=== PATIENT | female | born 1960 | race Hispanic/Latino ===

== ENCOUNTER 2017-04-08 08:20 | Day surgery (SDC) | payer OTHER ==
[2017-04-08] MEDS ORDERED: Lactated Ringer's 500 ML IV ONE (09:24)
[2017-04-08] MEDS ORDERED: Propofol 10 mg/ml Inj (20 ML) ONE (09:44)
[2017-04-08 10:24] VITALS: O2SAT 96
[2017-04-08 10:33] VITALS: BP 121/76; PULSE 71; RESP 14; TEMP 97.6
== END 2017-04-08 12:00 | disposition home or self-care (01) ==
LOC: H.ENDO 08:20
PROVIDERS: ATTEND Internal Medicine Gastroenterology
DX: R10.13 Epigastric pain (principal); K44.9 Diaphragmatic hernia without obstruction or gangrene; K31.9 Disease of stomach and duodenum, unspecified; Z12.11 Encounter for screening for malignant neoplasm of colon; K64.9 Unspecified hemorrhoids

== ENCOUNTER 2018-10-26 15:58 | Inpatient (IN) | payer OTHER ==
[2018-10-26 17:42] VITALS: BMI 50.1
[2018-10-26] MEDS ORDERED: Alum-Mag Hydrox-Simethicone Susp (30 mL) PO PRN (18:54)
[2018-10-26] MEDS ORDERED: Albuterol 0.083% Inhal Sol (2.5 mg/3 mL) UD IH PRN (18:54)
[2018-10-26] MEDS ORDERED: oxyCODONE 5 mg Immediate Release Tab PO PRN (18:54)
[2018-10-26] MEDS ORDERED: Magnesium Hydroxide Susp 30 ml UD PO PRN (18:54)
[2018-10-26] MEDS ORDERED: oxyCODONE 10 mg Immediate Release Tab PO PRN (18:54)
--- NOTE | 2018-10-26 19:08 | CP.PCM.HP ---
History of Present Illness - History of Present Illness History of Present Illness: 58 yo female with history of HTN, Asthma, Obesity and Osteoarthritis transferred and admitted to Acute Rehab for PT/OT after bilateral TKR at [facility] on 10/23/2018. Present on Admission - Present on Admission Any Indicators Present on Admission: Yes History of DVT/PE: Yes History of Uncontrolled Diabetes: Yes Urinary Catheter: Yes Decubitus Ulcer Present: Yes Review of Systems - Review of Systems All systems: reviewed and no additional remarkable complaints except (aside from those mentioned above, 12 point system review were negative by me) Past Patient History - Tetanus Immunizations Tetanus Immunization: Unknown - Past Medical History & Family History Past Medical History?: Yes - Past Social History Smoking Status: Former Smoker Chewing Tobacco Use: No Cigar Use: No Alcohol: Occasional Drugs: Denies Home Situation {Lives}: With Family - CARDIAC Hx Hypertension: Yes - MUSCULOSKELETAL/RHEUMATOLOGICAL Hx Arthritis: Yes (both knees) - SURGICAL HISTORY Hx Surgeries: Yes Hx Section: Yes Hx Herniorrhaphy: Yes Hx Orthopedic Surgery: Yes Hx Tonsillectomy: Yes Hx Tubal Ligation: Yes - ANESTHESIA Hx Anesthesia: Yes Hx Anesthesia Reactions: No Hx Malignant Hyperthermia: No Meds Allergies/Adverse Reactions: Allergies Allergy/AdvReac Type Severity Reaction Status Date / Time No Known Allergies Allergy Verified 10/26/18 18:28 Physical Exam - Constitutional Appears: No Acute Distress - Head Exam Head Exam: ATRAUMATIC - Eye Exam Eye Exam: absent: Scleral icterus - ENT Exam ENT Exam: Mucous Membranes Moist - Neck Exam Neck exam: Negative for: Meningismus - Respiratory Exam Respiratory Exam: absent: Rales, Rhonchi, Wheezes, Respiratory Distress - Cardiovascular Exam Cardiovascular Exam: REGULAR RHYTHM, +S1, +S2 - GI/Abdominal Exam GI & Abdominal Exam: Soft. absent: Tenderness - Rectal Exam Rectal Exam: Deferred - Extremities Exam Extremities exam: Negative for: full ROM (limited ROM on both knees) - Neurological Exam Neurological exam: Alert, Oriented x3 - Psychiatric Exam Psychiatric exam: Normal Affect - Skin Skin Exam: Dry, Intact Assessment & Plan - Assessment and Plan (Free Text) Assessment: 58 yo female with history of HTN, Asthma, Obesity and Osteoarthritis transferred and admitted to Acute Rehab for PT/OT after bilateral TKR at [facility] on 10/23/2018. 1. Post Bilateral TKR physiatry consult with Dr Davies continue pain management refer to PT/OT 2. Asthma Albuterol inhaler 1 puff q 4hrs prn 3. HTN BP controlled continue Benicar 4. DVT prophylaxis Lovenox 40mg SC daily
[2018-10-26] MEDS: oxyCODONE 5 mg Immediate Release Tab PO PRN (19:57)
[2018-10-27] MEDS ORDERED: Albuterol 0.083% Inhal Sol (2.5 mg/3 mL) UD IH SCH
[2018-10-27] MEDS: oxyCODONE 5 mg Immediate Release Tab PO PRN ×5 (00:05→20:10)
[2018-10-27] MEDS: Albuterol 0.083% Inhal Sol (2.5 mg/3 mL) UD IH SCH ×5 (04:56→20:07)
[2018-10-27 07:01] LABS: BASO % 0.2 % (0.0-2.0); EOS # 0.1 K/uL (0.0-0.7); EOS % 1.3 % (0.0-4.0); HEMOGLOBIN 10.1 g/dL (12.0-16.0); LYMPH # 3.4 K/uL (1.0-4.3); LYMPH % 30.7 % (20.0-40.0); MEAN CELL VOLUME 96.2 fl (81.0-99.0); MEAN CORPUSCULAR HEMOGLOBIN 32.4 pg (27.0-31.0); MEAN CORPUSCULAR HGB CONC 33.6 g/dL (33.0-37.0); MEAN PLATELET VOLUME 10.1 fl (7.2-11.7); MONO # 0.8 K/uL (0.0-0.8); NEUT # 6.7 K/uL (1.8-7.0); NEUT % 60.8 % (50.0-75.0); NRBC % 0.1 % (0.0-0.0); RBC 3.11 Mil/uL (3.80-5.20); RED CELL DISTRIBUTION WIDTH 13.2 % (11.5-14.5); WHITE BLOOD COUNT 11.1 K/uL (4.8-10.8)
[2018-10-27 07:07] LABS: ALB/GLOB RATIO 1.2 (1.0-2.1); ALBUMIN 3.1 g/dL (3.5-5.0); ALT/SGPT 60 U/L (9-52); AST/SGOT 52 U/L (14-36); BLOOD UREA NITROGEN 14 mg/dl (7-17); CALCIUM 8.9 mg/dL (8.4-10.2); GFR NON-AFRICAN AMERICAN > 60
[2018-10-27] MEDS: Pantoprazole 40 mg EC Tab PO SCH (09:25)
[2018-10-27] MEDS: Multivitamin With Minerals Tab PO SCH (09:25)
[2018-10-27] MEDS: OLMESARTAN PO SCH (11:00)
[2018-10-27] MEDS: HYDROCHLOROTHIAZIDE PO SCH (11:00)
[2018-10-27] MEDS: [UNRECOGNIZED DRUG - OTHER] PO SCH (11:00)
[2018-10-27] MEDS: SOLIFENACIN SUCCINATE PO SCH (11:15)
[2018-10-27] MEDS: Enoxaparin 40 mg Syringe SC SCH (12:26)
--- NOTE | 2018-10-27 14:38 | PCM.OPOC ---
Physiatry Overall Plan of Care - Overall Plan of Care Estimated Length of Stay in Weeks: 2 Rehab Impairment: Mobility, Gait, Balance, Coordination Etiologic Diagnosis: Hip/Knee Surgery - Anticipated Interventions Physical Therapy:: Yes Occupational Therapy:: Yes Recreational Therapy:: Yes - Therapy Goals Bed Mobility: Independent Ambulation: Independent Functional Positional Changes:: Independent - Functional Outcomes Functional Outcomes: fair - Discharge Plan Identification of Barriers to Discharge: Home Situation Discharge Destination: Home
--- NOTE | 2018-10-27 14:41 | CP.PCM.CON ---
History of Present Illness - History of Present Illness History of Present Illness: 58 year old female with bilateral knee replacement, admitted form [facility] name, with PMH of asthma, htn obesity Review of Systems - Musculoskeletal Musculoskeletal: Limited Range of Motion, Muscle Weakness Past Patient History - Tetanus Immunizations Tetanus Immunization: Unknown - Past Medical History & Family History Past Medical History?: Yes - Past Social History Smoking Status: Former Smoker - CARDIAC Hx Cardiac Disorders: Yes Hx Hypertension: Yes - PULMONARY Hx Respiratory Disorders: Yes Hx Asthma: Yes - NEUROLOGICAL Hx Neurological Disorder: No - HEENT Hx HEENT Problems: Yes Other/Comment: uses eyeglasses for distance and reading - RENAL Hx Chronic Kidney Disease: No - ENDOCRINE/METABOLIC Hx Endocrine Disorders: Yes Other/Comment: Obesity - HEMATOLOGICAL/ONCOLOGICAL Hx Blood Disorders: No Hx AIDS: No Hx Human Immunodeficiency Virus (HIV): No - INTEGUMENTARY Hx Dermatological Problems: Yes Hx Melanoma: Yes (skin melanoma) - MUSCULOSKELETAL/RHEUMATOLOGICAL Hx Falls: No - GASTROINTESTINAL Hx Gastrointestinal Disorders: No - GENITOURINARY/GYNECOLOGICAL Hx Genitourinary Disorders: No - PSYCHIATRIC Hx Substance Use: No - SURGICAL HISTORY Hx Surgeries: Yes Hx Section: Yes Hx Cholecystectomy: Yes Hx Dilation and Curettage: Yes (x2) Hx Herniorrhaphy: Yes Hx Orthopedic Surgery: Yes (both hips surgery at 6 years old) Hx Tonsillectomy: Yes Hx Tubal Ligation: Yes Other/Comment: endometrial ablation - ANESTHESIA Hx Anesthesia: Yes Hx Anesthesia Reactions: No Hx Malignant Hyperthermia: No Meds Allergies/Adverse Reactions: Allergies Allergy/AdvReac Type Severity Reaction Status Date / Time No Known Allergies Allergy Verified 10/26/18 18:28 - Medications Medications: Current Medications Acetaminophen (Tylenol 325mg Tab) 650 mg PO Q4 PRN PRN Reason: Pain, Mild (1-3) Acetaminophen (Tylenol 325mg Tab) 650 mg PO Q4 PRN PRN Reason: Fever >100.4 F Al Hydrox/Mg Hydrox/Simethicone (Maalox Plus 30 Ml) 30 ml PO Q4 PRN PRN Reason: Heartburn Albuterol Sulfate (Albuterol 0.083% Inhal Lisa (2.5 Mg/3 Ml) Ud) 2.5 mg IH RQ4 [facility] Last Admin: 10/27/18 12:31 Dose: Not Given Bisacodyl (Dulcolax) 10 mg RC DAILY PRN PRN Reason: Constipation Celecoxib (Celebrex) 200 mg PO 1000,2200 [facility] Last Admin: 10/27/18 10:00 Dose: 200 mg Docusate Sodium (Colace) 100 mg PO TID [facility] Last Admin: 10/27/18 12:28 Dose: 100 mg Enoxaparin Sodium (Lovenox) 40 mg SC DAILY [facility]; Protocol Last Admin: 10/27/18 12:26 Dose: 40 mg Home Med (Olmesartan/Hydrochlorothiazide [Benicar Hct 20-12.5 Mg Tablet]) 20 mg PO DAILY [facility] Last Admin: 10/27/18 11:00 Dose: 20 mg Home Med (Solifenacin Succinate [Vesicare]) 1 tab PO DAILY [facility] Last Admin: 10/27/18 11:15 Dose: 1 tab Magnesium Hydroxide (Milk Of Magnesia) 30 ml PO HS PRN PRN Reason: Constipation Multivitamins/Minerals (Therapeutic-M Tab) 1 tab PO DAILY [facility] Last Admin: 10/27/18 09:25 Dose: 1 tab Ondansetron HCl (Zofran Inj) 4 mg IVP Q6H PRN PRN Reason: Nausea/Vomiting Oxycodone HCl (Oxycodone Immediate Release Tab) 5 mg PO Q4 PRN PRN Reason: Pain, moderate (4-7) Oxycodone HCl (Oxycodone Immediate Release Tab) 10 mg PO Q4 PRN PRN Reason: Pain, severe (8-10) Last Admin: 10/27/18 13:38 Dose: 10 mg Pantoprazole Sodium (Protonix Ec Tab) 40 mg PO DAILY [facility] Last Admin: 10/27/18 09:25 Dose: 40 mg Pregabalin (Lyrica) 50 mg PO 1000,2200 [facility] Last Admin: 10/27/18 12:25 Dose: 50 mg Sennosides (Senokot Tab) 17.2 mg PO HS [facility] Last Admin: 10/26/18 22:59 Dose: 17.2 mg Zolpidem Tartrate (Ambien) 2.5 mg PO HS PRN PRN Reason: Insomnia Physical Exam - Constitutional Appears: Well - Head Exam Head Exam: ATRAUMATIC, NORMAL INSPECTION, NORMOCEPHALIC - Eye Exam Eye Exam: EOMI, Normal appearance, PERRL Pupil Exam: NORMAL ACCOMODATION - ENT Exam ENT Exam: Mucous Membranes Moist, Normal Exam - Neck Exam Neck exam: Positive for: Normal Inspection - Respiratory Exam Respiratory Exam: Clear to Auscultation Bilateral, NORMAL BREATHING PATTERN - Cardiovascular Exam Cardiovascular Exam: REGULAR RHYTHM - GI/Abdominal Exam GI & Abdominal Exam: Normal Bowel Sounds - Rectal Exam Rectal Exam: NORMAL INSPECTION - Exam External exam: NORMAL EXTERNAL EXAM - Extremities Exam Extremities exam: Positive for: normal inspection - Back Exam Back exam: NORMAL INSPECTION Additional comments: bilateral knee surgery, incisional area healing with TEds - Neurological Exam Neurological exam: Alert, CN II-XII Intact - Psychiatric Exam Psychiatric exam: Normal Affect - Skin Skin Exam: Dry Results - Vital Signs Recent Vital Signs: Last Vital Signs Temp 98.2 F 10/27/18 08:22 Pulse 86 10/27/18 08:22 Resp 18 10/27/18 08:22 BP 91/50 L 10/27/18 08:22 Pulse Ox 95 10/27/18 08:22 - Labs Result Diagrams: 10/27/18 05:35 10/27/18 05:35 Labs: Laboratory Results - last 24 hr 10/27/18 10/27/18 05:35 05:35 WBC 11.1 H RBC 3.11 L Hgb 10.1 L D Hct 29.9 L MCV 96.2 MCH 32.4 H MCHC 33.6 RDW 13.2 Plt Count 249 MPV 10.1 Neut % (Auto) 60.8 Lymph % (Auto) 30.7 [place] % (Auto) 7.0 Eos % (Auto) 1.3 Baso % (Auto) 0.2 Neut # (Auto) 6.7 Lymph # (Auto) 3.4 [place] # (Auto) 0.8 Eos # (Auto) 0.1 Baso # (Auto) 0.0 Sodium 137 Potassium 3.6 Chloride 102 Carbon Dioxide 30 Anion Gap 9 L BUN 14 Creatinine 0.6 L Est GFR ( Amer) > 60 Est GFR (Non-Af Amer) > 60 Random Glucose 106 H Calcium 8.9 Total Bilirubin 0.8 AST 52 H D ALT 60 H D Alkaline Phosphatase 104 Total Protein 5.7 L Albumin 3.1 L D Globulin 2.6 Albumin/Globulin Ratio 1.2 Assessment & Plan (1) Status post bilateral knee replacements Assessment and Plan: also history of HT, obesity, OA plan for physical, occupational therapy Quadriceps strengthening ,pain treatment ,follow up with the orthopedic ord ers. plan of care written Status: Acute
[2018-10-28] MEDS ORDERED: oxyCODONE 10 mg Immediate Release Tab PO ONE
[2018-10-28] MEDS: Albuterol 0.083% Inhal Sol (2.5 mg/3 mL) UD IH SCH ×6 (00:19→19:15)
[2018-10-28] MEDS: oxyCODONE 5 mg Immediate Release Tab PO PRN ×5 (02:11→21:10)
[2018-10-28] MEDS: Multivitamin With Minerals Tab PO SCH (08:38)
[2018-10-28] MEDS: Pantoprazole 40 mg EC Tab PO SCH (08:38)
[2018-10-28] MEDS: Enoxaparin 40 mg Syringe SC SCH (08:39)
[2018-10-28] MEDS: SOLIFENACIN SUCCINATE PO SCH (08:40)
[2018-10-28] MEDS: HYDROCHLOROTHIAZIDE PO SCH (11:00)
[2018-10-28] MEDS: OLMESARTAN PO SCH (11:00)
[2018-10-28] MEDS: [UNRECOGNIZED DRUG - OTHER] PO SCH (11:00)
[2018-10-29] MEDS ORDERED: oxyCODONE 5 mg Immediate Release Tab PO ONE (00:30)
[2018-10-29] MEDS: Albuterol 0.083% Inhal Sol (2.5 mg/3 mL) UD IH SCH ×6 (00:42→19:02)
[2018-10-29] MEDS: oxyCODONE 5 mg Immediate Release Tab PO PRN ×5 (06:18→23:00)
[2018-10-29] MEDS: Pantoprazole 40 mg EC Tab PO SCH (08:49)
[2018-10-29] MEDS: Multivitamin With Minerals Tab PO SCH (08:49)
[2018-10-29] MEDS: SOLIFENACIN SUCCINATE PO SCH (08:50)
[2018-10-29] MEDS: Enoxaparin 40 mg Syringe SC SCH (08:53)
[2018-10-29] MEDS: HYDROCHLOROTHIAZIDE PO SCH (08:53)
[2018-10-29] MEDS: OLMESARTAN PO SCH (08:53)
[2018-10-29] MEDS: [UNRECOGNIZED DRUG - OTHER] PO SCH (08:53)
--- NOTE | 2018-10-29 10:54 | CP.PCM.PN ---
Subjective - Date & Time of Evaluation Date of Evaluation: 10/28/18 Time of Evaluation: 09:15 - Subjective Subjective: patient with bilateral leg weakness Objective - Vital Signs/Intake and Output Vital Signs (last 24 hours): Temp Pulse Resp BP Pulse Ox 97.9 F 86 20 112/59 L 96 10/29/18 08:12 10/29/18 08:12 10/29/18 08:12 10/29/18 08:12 10/29/18 08:12 - Medications Medications: Current Medications Acetaminophen (Tylenol 325mg Tab) 650 mg PO Q4 PRN PRN Reason: Pain, Mild (1-3) Acetaminophen (Tylenol 325mg Tab) 650 mg PO Q4 PRN PRN Reason: Fever >100.4 F Al Hydrox/Mg Hydrox/Simethicone (Maalox Plus 30 Ml) 30 ml PO Q4 PRN PRN Reason: Heartburn Albuterol Sulfate (Albuterol 0.083% Inhal Lisa (2.5 Mg/3 Ml) Ud) 2.5 mg IH RQ4 [facility] Last Admin: 10/29/18 07:37 Dose: 2.5 mg Bisacodyl (Dulcolax) 10 mg RC DAILY PRN PRN Reason: Constipation Celecoxib (Celebrex) 200 mg PO 1000,2200 [facility] Last Admin: 10/29/18 09:00 Dose: 200 mg Docusate Sodium (Colace) 100 mg PO TID [facility] Last Admin: 10/29/18 08:48 Dose: 100 mg Enoxaparin Sodium (Lovenox) 40 mg SC DAILY [facility]; Protocol Last Admin: 10/29/18 08:53 Dose: 40 mg Home Med (Olmesartan/Hydrochlorothiazide [Benicar Hct 20-12.5 Mg Tablet]) 20 mg PO DAILY [facility] Last Admin: 10/29/18 08:53 Dose: 20 mg Home Med (Solifenacin Succinate [Vesicare]) 1 tab PO DAILY [facility] Last Admin: 10/29/18 08:50 Dose: 1 tab Magnesium Hydroxide (Milk Of Magnesia) 30 ml PO HS PRN PRN Reason: Constipation Multivitamins/Minerals (Therapeutic-M Tab) 1 tab PO DAILY [facility] Last Admin: 10/29/18 08:49 Dose: 1 tab Ondansetron HCl (Zofran Inj) 4 mg IVP Q6H PRN PRN Reason: Nausea/Vomiting Oxycodone HCl (Oxycodone Immediate Release Tab) 5 mg PO Q4 PRN PRN Reason: Pain, moderate (4-7) Oxycodone HCl (Oxycodone Immediate Release Tab) 10 mg PO Q4 PRN PRN Reason: Pain, severe (8-10) Last Admin: 10/29/18 10:20 Dose: 10 mg Pantoprazole Sodium (Protonix Ec Tab) 40 mg PO DAILY [facility] Last Admin: 10/29/18 08:49 Dose: 40 mg Pregabalin (Lyrica) 50 mg PO 1000,2200 [facility] Last Admin: 10/29/18 09:00 Dose: 50 mg Sennosides (Senokot Tab) 17.2 mg PO HS [facility] Last Admin: 10/28/18 21:12 Dose: 17.2 mg Zolpidem Tartrate (Ambien) 2.5 mg PO HS PRN PRN Reason: Insomnia - Labs Labs: 10/27/18 05:35 10/27/18 05:35 - Constitutional Appears: Well - Head Exam Head Exam: ATRAUMATIC, NORMAL INSPECTION, NORMOCEPHALIC - Eye Exam Eye Exam: EOMI, Normal appearance Pupil Exam: NORMAL ACCOMODATION, PERRL - ENT Exam ENT Exam: Mucous Membranes Moist - Neck Exam Neck Exam: Normal Inspection - Respiratory Exam Respiratory Exam: NORMAL BREATHING PATTERN - Cardiovascular Exam Cardiovascular Exam: REGULAR RHYTHM - GI/Abdominal Exam GI & Abdominal Exam: Normal Bowel Sounds - Exam External exam: NORMAL EXTERNAL EXAM - Extremities Exam Extremities Exam: Normal Capillary Refill - Back Exam Back Exam: NORMAL INSPECTION - Neurological Exam Neurological Exam: Alert, Awake Neuro motor strength exam: Left Lower Extremity: 3, Right Lower Extremity: 3 - Psychiatric Exam Psychiatric exam: Normal Affect Assessment and Plan (1) Status post bilateral knee replacements Assessment & Plan: plan for physical, occupational and rec therapy follow regarding the specific orthopedic protocol, continue acute rehab Status: Acute
[2018-10-30] MEDS: Albuterol 0.083% Inhal Sol (2.5 mg/3 mL) UD IH SCH ×7 (00:20→23:55)
[2018-10-30] MEDS ORDERED: oxyCODONE 5 mg Immediate Release Tab PO STA (00:22)
[2018-10-30] MEDS: oxyCODONE 5 mg Immediate Release Tab PO PRN ×5 (06:13→22:46)
[2018-10-30 06:51] LABS: HEMOGLOBIN 10.4 g/dL (12.0-16.0); MEAN CELL VOLUME 96.5 fl (81.0-99.0); MEAN CORPUSCULAR HEMOGLOBIN 32.4 pg (27.0-31.0); MEAN CORPUSCULAR HGB CONC 33.6 g/dL (33.0-37.0); RBC 3.21 Mil/uL (3.80-5.20); RED CELL DISTRIBUTION WIDTH 13.6 % (11.5-14.5); WHITE BLOOD COUNT 14.6 K/uL (4.8-10.8)
[2018-10-30 07:04] LABS: BLOOD UREA NITROGEN 15 mg/dl (7-17); GFR NON-AFRICAN AMERICAN > 60
[2018-10-30] MEDS: Enoxaparin 40 mg Syringe SC SCH (08:29)
[2018-10-30] MEDS: Pantoprazole 40 mg EC Tab PO SCH (08:31)
[2018-10-30] MEDS: SOLIFENACIN SUCCINATE PO SCH (08:32)
[2018-10-30] MEDS: Multivitamin With Minerals Tab PO SCH (08:33)
[2018-10-30] MEDS: [UNRECOGNIZED DRUG - OTHER] PO SCH (08:33)
[2018-10-30] MEDS: OLMESARTAN PO SCH (08:33)
[2018-10-30] MEDS: HYDROCHLOROTHIAZIDE PO SCH (08:33)
[2018-10-30] MEDS ORDERED: Lactulose 10 gm/15 ml (Rectal Use) PR ONE (09:48)
--- NOTE | 2018-10-30 10:05 | CP.PCM.CON ---
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 She has no history of diabetes or coronary artery disease or congestive cardiac failure. She has taken her antihypertensives regularly and tolerated the surgical intervention without any difficulty. Physical examination shows a middle aged overweight pleasant female who is quite alert awake coherent and afebrile. Slightly propped up in bed she can carry on a conversation and has a heart rat of 68 bpm regular and a blood pressure of 92/70 mmHg. Her jugular venous pressure was not elevated there was minimal pitting edema over both lower extremities. Pedal pulses were feeble but distinct of present. Her chest was clear and heart sounds were pure. her abdomen was soft liver and spleen are not palpable. Surgical wounds were clean. There was no calf tenderness. Impression: status post bilateral knee replacement for severe osteoarthritis bilaterally. Chronic exogenous obesity and hypertension. At this point the patient is normotensive and I have withheld her antihypertensives medications. She has been taking narcotics for pain relief and complains of severe constipation. I have given her lactulose for the same. I will follow the patient with you thank you. Past Patient History - Tetanus Immunizations Tetanus Immunization: Unknown - Past Medical History & Family History Past Medical History?: Yes - Past Social History Smoking Status: Former Smoker - CARDIAC Hx Cardiac Disorders: Yes Hx Hypertension: Yes - PULMONARY Hx Respiratory Disorders: Yes Hx Asthma: Yes - NEUROLOGICAL Hx Neurological Disorder: No - HEENT Hx HEENT Problems: Yes Other/Comment: uses eyeglasses for distance and reading - RENAL Hx Chronic Kidney Disease: No - ENDOCRINE/METABOLIC Hx Endocrine Disorders: Yes Other/Comment: Obesity - HEMATOLOGICAL/ONCOLOGICAL Hx Blood Disorders: No Hx AIDS: No Hx Human Immunodeficiency Virus (HIV): No - INTEGUMENTARY Hx Dermatological Problems: Yes Hx Melanoma: Yes (skin melanoma) - MUSCULOSKELETAL/RHEUMATOLOGICAL Hx Falls: No - GASTROINTESTINAL Hx Gastrointestinal Disorders: No - GENITOURINARY/GYNECOLOGICAL Hx Genitourinary Disorders: No - PSYCHIATRIC Hx Substance Use: No - SURGICAL HISTORY Hx Surgeries: Yes Hx Section: Yes Hx Cholecystectomy: Yes Hx Dilation and Curettage: Yes (x2) Hx Herniorrhaphy: Yes Hx Orthopedic Surgery: Yes (both hips surgery at 6 years old) Hx Tonsillectomy: Yes Hx Tubal Ligation: Yes Other/Comment: endometrial ablation - ANESTHESIA Hx Anesthesia: Yes Hx Anesthesia Reactions: No Hx Malignant Hyperthermia: No Meds Allergies/Adverse Reactions: Allergies Allergy/AdvReac Type Severity Reaction Status Date / Time No Known Allergies Allergy Verified 10/26/18 18:28 - Medications Medications: Current Medications Acetaminophen (Tylenol 325mg Tab) 650 mg PO Q4 PRN PRN Reason: Pain, Mild (1-3) Acetaminophen (Tylenol 325mg Tab) 650 mg PO Q4 PRN PRN Reason: Fever >100.4 F Al Hydrox/Mg Hydrox/Simethicone (Maalox Plus 30 Ml) 30 ml PO Q4 PRN PRN Reason: Heartburn Albuterol Sulfate (Albuterol 0.083% Inhal Lisa (2.5 Mg/3 Ml) Ud) 2.5 mg IH RQ4 [facility] Last Admin: 10/30/18 07:27 Dose: Not Given Bisacodyl (Dulcolax) 10 mg RC DAILY PRN PRN Reason: Constipation Celecoxib (Celebrex) 200 mg PO 1000,2200 [facility] Last Admin: 10/30/18 09:12 Dose: 200 mg Docusate Sodium (Colace) 100 mg PO TID [facility] Last Admin: 10/30/18 08:28 Dose: 100 mg Enoxaparin Sodium (Lovenox) 40 mg SC DAILY [facility]; Protocol Last Admin: 10/30/18 08:29 Dose: 40 mg Home Med (Olmesartan/Hydrochlorothiazide [Benicar Hct 20-12.5 Mg Tablet]) 20 mg PO DAILY [facility] Last Admin: 10/30/18 08:33 Dose: Not Given Home Med (Solifenacin Succinate [Vesicare]) 1 tab PO DAILY [facility] Last Admin: 10/30/18 08:32 Dose: 1 tab Magnesium Hydroxide (Milk Of Magnesia) 30 ml PO HS PRN PRN Reason: Constipation Multivitamins/Minerals (Therapeutic-M Tab) 1 tab PO DAILY [facility] Last Admin: 10/30/18 08:33 Dose: 1 tab Ondansetron HCl (Zofran Inj) 4 mg IVP Q6H PRN PRN Reason: Nausea/Vomiting Oxycodone HCl (Oxycodone Immediate Release Tab) 5 mg PO Q4 PRN PRN Reason: Pain, moderate (4-7) Oxycodone HCl (Oxycodone Immediate Release Tab) 10 mg PO Q4 PRN PRN Reason: Pain, severe (8-10) Last Admin: 10/30/18 06:13 Dose: 10 mg Pantoprazole Sodium (Protonix Ec Tab) 40 mg PO DAILY [facility] Last Admin: 10/30/18 08:31 Dose: 40 mg Pregabalin (Lyrica) 50 mg PO 1000,2200 [facility] Last Admin: 10/30/18 09:15 Dose: 50 mg Sennosides (Senokot Tab) 17.2 mg PO HS [facility] Last Admin: 10/29/18 21:36 Dose: 17.2 mg Zolpidem Tartrate (Ambien) 2.5 mg PO HS PRN PRN Reason: Insomnia Results - Vital Signs Recent Vital Signs: Last Vital Signs Temp 98.8 F 10/30/18 08:26 Pulse 77 10/30/18 08:26 Resp 18 10/30/18 08:26 BP 97/47 L 10/30/18 08:26 Pulse Ox 97 10/30/18 08:26 - Labs Result Diagrams: 10/30/18 05:25 10/30/18 05:25 Labs: Laboratory Results - last 24 hr 10/30/18 10/30/18 05:25 05:25 WBC 14.6 H RBC 3.21 L Hgb 10.4 L Hct 31.0 L MCV 96.5 MCH 32.4 H MCHC 33.6 RDW 13.6 Plt Count 306 Sodium 135 Potassium 4.0 Chloride 96 L Carbon Dioxide 32 H Anion Gap 11 BUN 15 Creatinine 0.6 L Est GFR ( Amer) > 60 Est GFR (Non-Af Amer) > 60 Random Glucose 118 H Calcium 9.0
--- NOTE | 2018-10-30 13:27 | CP.PCM.PN ---
Subjective - Date & Time of Evaluation Date of Evaluation: 10/30/18 Time of Evaluation: 11:00 - Subjective Subjective: Patient seen and examined. Still complaining of pain on both knees specially during ambulation and therapy. Objective - Vital Signs/Intake and Output Vital Signs (last 24 hours): Temp Pulse Resp BP Pulse Ox 98.8 F 77 18 90/47 L 97 10/30/18 08:26 10/30/18 08:26 10/30/18 08:26 10/30/18 11:56 10/30/18 08:26 - Medications Medications: Current Medications Acetaminophen (Tylenol 325mg Tab) 650 mg PO Q4 PRN PRN Reason: Pain, Mild (1-3) Acetaminophen (Tylenol 325mg Tab) 650 mg PO Q4 PRN PRN Reason: Fever >100.4 F Al Hydrox/Mg Hydrox/Simethicone (Maalox Plus 30 Ml) 30 ml PO Q4 PRN PRN Reason: Heartburn Albuterol Sulfate (Albuterol 0.083% Inhal Lisa (2.5 Mg/3 Ml) Ud) 2.5 mg IH RQ4 [facility] Last Admin: 10/30/18 11:09 Dose: Not Given Bisacodyl (Dulcolax) 10 mg RC DAILY PRN PRN Reason: Constipation Celecoxib (Celebrex) 200 mg PO 1000,2200 [facility] Last Admin: 10/30/18 09:12 Dose: 200 mg Docusate Sodium (Colace) 100 mg PO TID [facility] Last Admin: 10/30/18 12:16 Dose: 100 mg Enoxaparin Sodium (Lovenox) 40 mg SC DAILY [facility]; Protocol Last Admin: 10/30/18 08:29 Dose: 40 mg Home Med (Olmesartan/Hydrochlorothiazide [Benicar Hct 20-12.5 Mg Tablet]) 20 mg PO DAILY [facility] Last Admin: 10/30/18 08:33 Dose: Not Given Home Med (Solifenacin Succinate [Vesicare]) 1 tab PO DAILY [facility] Last Admin: 10/30/18 08:32 Dose: 1 tab Magnesium Hydroxide (Milk Of Magnesia) 30 ml PO HS PRN PRN Reason: Constipation Multivitamins/Minerals (Therapeutic-M Tab) 1 tab PO DAILY [facility] Last Admin: 10/30/18 08:33 Dose: 1 tab Ondansetron HCl (Zofran Inj) 4 mg IVP Q6H PRN PRN Reason: Nausea/Vomiting Oxycodone HCl (Oxycodone Immediate Release Tab) 5 mg PO Q4 PRN PRN Reason: Pain, moderate (4-7) Oxycodone HCl (Oxycodone Immediate Release Tab) 10 mg PO Q4 PRN PRN Reason: Pain, severe (8-10) Last Admin: 10/30/18 10:17 Dose: 10 mg Oxycodone HCl (Oxycontin Extended Release Tab) 10 mg PO Q12 [facility] Stop: 11/02/18 21:01 Pantoprazole Sodium (Protonix Ec Tab) 40 mg PO DAILY [facility] Last Admin: 10/30/18 08:31 Dose: 40 mg Pregabalin (Lyrica) 50 mg PO 1000,2200 [facility] Last Admin: 10/30/18 09:15 Dose: 50 mg Sennosides (Senokot Tab) 17.2 mg PO HS [facility] Last Admin: 10/29/18 21:36 Dose: 17.2 mg Zolpidem Tartrate (Ambien) 2.5 mg PO HS PRN PRN Reason: Insomnia - Labs Labs: 10/30/18 05:25 10/30/18 05:25 - Constitutional Appears: No Acute Distress - Head Exam Head Exam: ATRAUMATIC - Eye Exam Eye Exam: absent: Scleral icterus - ENT Exam ENT Exam: Mucous Membranes Moist - Neck Exam Neck Exam: absent: Meningismus - Respiratory Exam Respiratory Exam: absent: Rales, Rhonchi, Wheezes, Respiratory Distress - Cardiovascular Exam Cardiovascular Exam: REGULAR RHYTHM, +S1, +S2 - GI/Abdominal Exam GI & Abdominal Exam: Soft. absent: Tenderness - Rectal Exam Rectal Exam: Deferred - Extremities Exam Extremities Exam: absent: Full ROM (limited ROM on both knees because of pain) - Neurological Exam Neurological Exam: Alert, Oriented x3 - Psychiatric Exam Psychiatric exam: Normal Affect - Skin Skin Exam: Dry, Intact Assessment and Plan - Assessment and Plan (Free Text) Assessment: 58 yo female with history of HTN, Asthma, Obesity and Osteoarthritis transferred and admitted to Acute Rehab for PT/OT after bilateral TKR at [facility] on 10/23/2018. 1. Post Bilateral TKR physiatry consult with Dr Davies pain on knees unbearable at times and complained that pain medication does not last that long tolerating PT/OT 2. HTN BP on the low side probably secondary to narcotics Benicar put on hold cardiology consult with Dr Byers 3. Asthma asymptomatic Albuterol inhaler 1 puff q 4hrs prn 4. DVT prophylaxis Lovenox 40mg SC daily
[2018-10-30] MEDS: oxyCODONE 10 mg ER Tab (oxyCONTIN) PO SCH (21:31)
[2018-10-31] MEDS: oxyCODONE 5 mg Immediate Release Tab PO PRN ×4 (05:21→20:05)
[2018-10-31] MEDS: Albuterol 0.083% Inhal Sol (2.5 mg/3 mL) UD IH SCH (07:44)
[2018-10-31] MEDS: Multivitamin With Minerals Tab PO SCH (08:57)
[2018-10-31] MEDS: SOLIFENACIN SUCCINATE PO SCH (08:58)
[2018-10-31] MEDS: Enoxaparin 40 mg Syringe SC SCH (08:58)
[2018-10-31] MEDS: HYDROCHLOROTHIAZIDE PO SCH (08:58)
[2018-10-31] MEDS: [UNRECOGNIZED DRUG - OTHER] PO SCH (08:58)
[2018-10-31] MEDS: OLMESARTAN PO SCH (08:58)
[2018-10-31] MEDS: Pantoprazole 40 mg EC Tab PO SCH (08:59)
[2018-10-31] MEDS: oxyCODONE 10 mg ER Tab (oxyCONTIN) PO SCH ×2 (09:02→22:04)
--- NOTE | 2018-10-31 10:55 | CP.PCM.PN ---
Subjective - Date & Time of Evaluation Date of Evaluation: 10/31/18 Time of Evaluation: 09:00 - Subjective Subjective: Has been progressing well on PT Vital signs stable Lactulose ordered for intractable constipation due to opiates Bronchodilators D/Gaudencio Objective - Vital Signs/Intake and Output Vital Signs (last 24 hours): Temp Pulse Resp BP Pulse Ox 98.2 F 103 H 22 98/52 L 97 10/31/18 08:13 10/31/18 08:13 10/31/18 08:13 10/31/18 08:13 10/31/18 08:13 - Medications Medications: Current Medications Acetaminophen (Tylenol 325mg Tab) 650 mg PO Q4 PRN PRN Reason: Pain, Mild (1-3) Acetaminophen (Tylenol 325mg Tab) 650 mg PO Q4 PRN PRN Reason: Fever >100.4 F Al Hydrox/Mg Hydrox/Simethicone (Maalox Plus 30 Ml) 30 ml PO Q4 PRN PRN Reason: Heartburn Bisacodyl (Dulcolax) 10 mg RC DAILY PRN PRN Reason: Constipation Celecoxib (Celebrex) 200 mg PO 1000,2200 [facility] Last Admin: 10/31/18 08:59 Dose: 200 mg Docusate Sodium (Colace) 100 mg PO TID [facility] Last Admin: 10/31/18 08:59 Dose: 100 mg Enoxaparin Sodium (Lovenox) 40 mg SC DAILY [facility]; Protocol Last Admin: 10/31/18 08:58 Dose: 40 mg Home Med (Olmesartan/Hydrochlorothiazide [Benicar Hct 20-12.5 Mg Tablet]) 20 mg PO DAILY [facility] Last Admin: 10/31/18 08:58 Dose: 20 mg Home Med (Solifenacin Succinate [Vesicare]) 1 tab PO DAILY [facility] Last Admin: 10/31/18 08:58 Dose: 1 tab Lactulose (Enulose) 20 gm PO ONCE ONE Stop: 10/31/18 13:01 Magnesium Hydroxide (Milk Of Magnesia) 30 ml PO HS PRN PRN Reason: Constipation Multivitamins/Minerals (Therapeutic-M Tab) 1 tab PO DAILY [facility] Last Admin: 10/31/18 08:57 Dose: 1 tab Ondansetron HCl (Zofran Inj) 4 mg IVP Q6H PRN PRN Reason: Nausea/Vomiting Oxycodone HCl (Oxycodone Immediate Release Tab) 5 mg PO Q4 PRN PRN Reason: Pain, moderate (4-7) Oxycodone HCl (Oxycodone Immediate Release Tab) 10 mg PO Q4 PRN PRN Reason: Pain, severe (8-10) Last Admin: 10/31/18 10:34 Dose: 10 mg Oxycodone HCl (Oxycontin Extended Release Tab) 10 mg PO Q12 [facility] Stop: 11/02/18 21:01 Last Admin: 10/31/18 09:02 Dose: 10 mg Pantoprazole Sodium (Protonix Ec Tab) 40 mg PO DAILY [facility] Last Admin: 10/31/18 08:59 Dose: 40 mg Pregabalin (Lyrica) 50 mg PO 1000,2200 [facility] Last Admin: 10/31/18 08:59 Dose: 50 mg Sennosides (Senokot Tab) 17.2 mg PO HS [facility] Last Admin: 10/30/18 21:33 Dose: 17.2 mg Zolpidem Tartrate (Ambien) 2.5 mg PO HS PRN PRN Reason: Insomnia - Labs Labs: 10/30/18 05:25 10/30/18 05:25
--- NOTE | 2018-10-31 16:33 | CP.PCM.PN ---
Subjective - Date & Time of Evaluation Date of Evaluation: 10/31/18 Time of Evaluation: 10:00 - Subjective Subjective: patient exercising in the gym, on the mat, no complaints of any calf pain Objective - Vital Signs/Intake and Output Vital Signs (last 24 hours): Temp Pulse Resp BP Pulse Ox 98.2 F 103 H 22 98/52 L 97 10/31/18 08:13 10/31/18 08:13 10/31/18 08:13 10/31/18 08:13 10/31/18 08:13 - Medications Medications: Current Medications Acetaminophen (Tylenol 325mg Tab) 650 mg PO Q4 PRN PRN Reason: Pain, Mild (1-3) Acetaminophen (Tylenol 325mg Tab) 650 mg PO Q4 PRN PRN Reason: Fever >100.4 F Al Hydrox/Mg Hydrox/Simethicone (Maalox Plus 30 Ml) 30 ml PO Q4 PRN PRN Reason: Heartburn Bisacodyl (Dulcolax) 10 mg RC DAILY PRN PRN Reason: Constipation Celecoxib (Celebrex) 200 mg PO 1000,2200 [facility] Last Admin: 10/31/18 08:59 Dose: 200 mg Docusate Sodium (Colace) 100 mg PO TID [facility] Last Admin: 10/31/18 12:32 Dose: 100 mg Enoxaparin Sodium (Lovenox) 40 mg SC DAILY [facility]; Protocol Last Admin: 10/31/18 08:58 Dose: 40 mg Home Med (Olmesartan/Hydrochlorothiazide [Benicar Hct 20-12.5 Mg Tablet]) 20 mg PO DAILY [facility] Last Admin: 10/31/18 08:58 Dose: 20 mg Home Med (Solifenacin Succinate [Vesicare]) 1 tab PO DAILY [facility] Last Admin: 10/31/18 08:58 Dose: 1 tab Magnesium Hydroxide (Milk Of Magnesia) 30 ml PO HS PRN PRN Reason: Constipation Multivitamins/Minerals (Therapeutic-M Tab) 1 tab PO DAILY [facility] Last Admin: 10/31/18 08:57 Dose: 1 tab Ondansetron HCl (Zofran Inj) 4 mg IVP Q6H PRN PRN Reason: Nausea/Vomiting Oxycodone HCl (Oxycodone Immediate Release Tab) 5 mg PO Q4 PRN PRN Reason: Pain, moderate (4-7) Oxycodone HCl (Oxycodone Immediate Release Tab) 10 mg PO Q4 PRN PRN Reason: Pain, severe (8-10) Last Admin: 10/31/18 15:54 Dose: 10 mg Oxycodone HCl (Oxycontin Extended Release Tab) 10 mg PO Q12 [facility] Stop: 11/02/18 21:01 Last Admin: 10/31/18 09:02 Dose: 10 mg Pantoprazole Sodium (Protonix Ec Tab) 40 mg PO DAILY [facility] Last Admin: 10/31/18 08:59 Dose: 40 mg Pregabalin (Lyrica) 50 mg PO 1000,2200 [facility] Last Admin: 10/31/18 08:59 Dose: 50 mg Sennosides (Senokot Tab) 17.2 mg PO HS [facility] Last Admin: 10/30/18 21:33 Dose: 17.2 mg Zolpidem Tartrate (Ambien) 2.5 mg PO HS PRN PRN Reason: Insomnia - Labs Labs: 10/30/18 05:25 10/30/18 05:25 - Constitutional Appears: Well - Head Exam Head Exam: ATRAUMATIC, NORMAL INSPECTION, NORMOCEPHALIC - Eye Exam Eye Exam: EOMI, Normal appearance Pupil Exam: NORMAL ACCOMODATION, PERRL - ENT Exam ENT Exam: Mucous Membranes Moist, Normal Exam - Neck Exam Neck Exam: Full ROM - Respiratory Exam Respiratory Exam: Clear to Ausculation Bilateral, NORMAL BREATHING PATTERN - Cardiovascular Exam Cardiovascular Exam: REGULAR RHYTHM - GI/Abdominal Exam GI & Abdominal Exam: Soft, Normal Bowel Sounds - Exam External exam: NORMAL EXTERNAL EXAM - Extremities Exam Extremities Exam: Full ROM, Normal Capillary Refill, Normal Inspection - Back Exam Back Exam: NORMAL INSPECTION - Neurological Exam Neurological Exam: Alert, Awake Neuro motor strength exam: Left Lower Extremity: 3 (TEDS ), Right Lower Extremity: 3 (TEDS) - Psychiatric Exam Psychiatric exam: Normal Affect - Skin Skin Exam: Dry, Normal Color Assessment and Plan (1) Status post bilateral knee replacements Assessment & Plan: plan for quadriceps strengthening, transfers and gait training. Pain treatment changed according to the need. LOng acting oxycontin. Team conference for tomorrow Status: Acute
[2018-11-01] MEDS: oxyCODONE 5 mg Immediate Release Tab PO PRN ×4 (03:40→19:19)
[2018-11-01] MEDS: Enoxaparin 40 mg Syringe SC SCH (08:24)
[2018-11-01] MEDS: HYDROCHLOROTHIAZIDE PO SCH (08:25)
[2018-11-01] MEDS: OLMESARTAN PO SCH (08:25)
[2018-11-01] MEDS: [UNRECOGNIZED DRUG - OTHER] PO SCH (08:25)
[2018-11-01] MEDS: oxyCODONE 10 mg ER Tab (oxyCONTIN) PO SCH ×2 (08:27→21:11)
[2018-11-01] MEDS: SOLIFENACIN SUCCINATE PO SCH (08:28)
[2018-11-01] MEDS: Pantoprazole 40 mg EC Tab PO SCH (08:28)
[2018-11-01] MEDS: Multivitamin With Minerals Tab PO SCH (08:28)
--- NOTE | 2018-11-01 09:59 | CP.PCM.PN ---
Subjective - Date & Time of Evaluation Date of Evaluation: 11/01/18 Time of Evaluation: 09:10 - Subjective Subjective: Moderate surgical pain persists Participates in PT and continues to progress Had a BM yesterday (after oral Lactulose) Vital signs stable Surgical wounds healing well Eats and sleeps well Objective - Vital Signs/Intake and Output Vital Signs (last 24 hours): Temp Pulse Resp BP Pulse Ox 98.1 F 85 21 108/61 96 11/01/18 08:06 11/01/18 08:06 11/01/18 08:06 11/01/18 08:06 11/01/18 08:06 - Medications Medications: Current Medications Acetaminophen (Tylenol 325mg Tab) 650 mg PO Q4 PRN PRN Reason: Pain, Mild (1-3) Acetaminophen (Tylenol 325mg Tab) 650 mg PO Q4 PRN PRN Reason: Fever >100.4 F Al Hydrox/Mg Hydrox/Simethicone (Maalox Plus 30 Ml) 30 ml PO Q4 PRN PRN Reason: Heartburn Bisacodyl (Dulcolax) 10 mg RC DAILY PRN PRN Reason: Constipation Celecoxib (Celebrex) 200 mg PO 1000,2200 [facility] Last Admin: 11/01/18 09:13 Dose: 200 mg Docusate Sodium (Colace) 100 mg PO TID [facility] Last Admin: 11/01/18 08:23 Dose: 100 mg Enoxaparin Sodium (Lovenox) 40 mg SC DAILY [facility]; Protocol Last Admin: 11/01/18 08:24 Dose: 40 mg Home Med (Olmesartan/Hydrochlorothiazide [Benicar Hct 20-12.5 Mg Tablet]) 20 mg PO DAILY [facility] Last Admin: 11/01/18 08:25 Dose: 20 mg Home Med (Solifenacin Succinate [Vesicare]) 1 tab PO DAILY [facility] Last Admin: 11/01/18 08:28 Dose: 1 tab Magnesium Hydroxide (Milk Of Magnesia) 30 ml PO HS PRN PRN Reason: Constipation Multivitamins/Minerals (Therapeutic-M Tab) 1 tab PO DAILY [facility] Last Admin: 11/01/18 08:28 Dose: 1 tab Ondansetron HCl (Zofran Inj) 4 mg IVP Q6H PRN PRN Reason: Nausea/Vomiting Oxycodone HCl (Oxycodone Immediate Release Tab) 5 mg PO Q4 PRN PRN Reason: Pain, moderate (4-7) Oxycodone HCl (Oxycodone Immediate Release Tab) 10 mg PO Q4 PRN PRN Reason: Pain, severe (8-10) Last Admin: 11/01/18 09:16 Dose: 10 mg Oxycodone HCl (Oxycontin Extended Release Tab) 10 mg PO Q12 [facility] Stop: 11/02/18 21:01 Last Admin: 11/01/18 08:27 Dose: 10 mg Pantoprazole Sodium (Protonix Ec Tab) 40 mg PO DAILY [facility] Last Admin: 11/01/18 08:28 Dose: 40 mg Pregabalin (Lyrica) 50 mg PO 1000,2200 [facility] Last Admin: 11/01/18 09:15 Dose: 50 mg Sennosides (Senokot Tab) 17.2 mg PO HS [facility] Last Admin: 10/31/18 21:17 Dose: 17.2 mg Zolpidem Tartrate (Ambien) 2.5 mg PO HS PRN PRN Reason: Insomnia - Labs Labs: 10/30/18 05:25 10/30/18 05:25
--- NOTE | 2018-11-01 13:14 | PCM.PSYTMC ---
Acute Rehab Team Conference - - Vital Signs: Vital Signs (Last 8 Hours): Vital Signs 11/01/18 08:06 Temperature 98.1 F Pulse Rate 85 Respiratory 21 Rate Blood Pressure 108/61 O2 Sat by Pulse 96 Oximetry Pain: 0 Physical Therapy - Bed Mobility Bed Mobility: Minimal Assistance - Transfers Wheelchair to Mat: Supervision, Verbal Cues, Contact Guard Sit to Stand: Supervision, Verbal Cues, Contact Guard - Ambulation Level of Assistance: Supervision, Verbal Cues Distance (ft.): 150 Assistive Devices: Rolling Walker Comment: supervision with RW, CGA with SPC - Stair Negotiation Stairs: Level of Assistance: Verbal Cues, Contact Guard Number of Stairs: 8 Stairs: Assistive Devices: Left Handrail, Right Handrail - Standing Balance Static Stand: Supervision - Pain Pain (assessed during therapy session): 6 Alleviating Techniques: Medication, Ice Comment: 6/10 pain in L knee, 3/10 pain in R knee - Insight/Carryover Insight/Carryover: Good - Patient/Family Education Comment: POC, safety - Assessment/Plan Assessment: The patient continues to do well in therapy as she is walking further, using a lesser assistive device, and performing stairs. Functionally she should achieve an independent level in the near future. Concerned about her ROM as she is limited with the left -7 to 82 degrees and right -4 to 80 degrees. Recommend further PT working on gait, transfers, bed mobility, stairs, strengthening, endurance, balance, and ROM. - Goals Timeframe: 10 days Goals: sit < > supine mod I. Mod I for all functional transfers. Mod I for ambulating 500 ft with SPC. Mod I for negotiating flight of stairs with handrail - Provider Physical Therapist:: Guera Floyd License Number:: [id number] Occupational Therapy - Arousal/Attention/Orientation Level of Consciousness: Awake, Alert Patient Orientation: Person, Place, Time, Appropriate to Age, Appropriate to Situation - ADL/IADL Self Feeding: Contact Guard Grooming: Set-up Help Bathing-Upper Ext: Supervision, Verbal Cues Bathing-Lower Ext: Minimal Assistance Dressing-Upper Ext: Supervision Dressing-Lower Ext: Minimal Assistance Comment: using lb AE - Sitting Balance Static Sitting: Independent without upper extremity support Dynamic Sitting: Reaches across midline, Reaches out of base of support, Reaches within base of support - Transfers Wheelchair to Bed Transfers: Supervision, Contact Guard Toilet Transfers: Supervision, Contact Guard Tub Transfers: Contact Guard - Wheelchair Management Level of Assistance: Modified Independent Distance (ft.): 150 - Upper Extremity Status Right Upper Extremity Comment: WFLs Left Upper Extremity Comment: WFLs - Pain Pain (assessed during therapy session): 7 Alleviating Techniques: Medication, Ice, Position Change Comment: B/L knee pain - Insight/Carryover Insight/Carryover: Good - Patient/Family Education Comment: LB AE/DME, energy conservation, fall prevention, therapy schedule,role of OT, plan of care/goals - Assessment/Plan Assessment: Pt is a 58 yo female presenting to acute rehab at [facility] s/p B/L TKRs. pt is WBAT. PRECAUTIONS:FALLS, B/L KNEE IMMOBILIZERS AT HS WHILE IN BED FOR 6 WEEKS, CONT SCD WHILE IN BED. pt presents with pain/stiffness in B/L knees, impaired dynamic standing balance/unsteadiness on feet, impaired act tolerance, impaired knowledge of adaptive/compensatory techs used for bathing/dressing. recommended dme: tub transfer bench, 3 in 1 commode, will need further assessment. Recommend skilled IP OT services 5-6x/week to max pt's functional I. recommend D/C to home - Goals Timeframe: 1 week Comment: mod I transfers,self care, iadls - Provider Occupational Therapist:: Myla Rolon License Number: [id number] Recreational Therapy - Participation Participation: Monitors His/Her Own Leisure Time - Attendance Attendance: Daily - Activities Leisure Activities: Television - Socialization Level of Socialization: Initiates/interacts freely with care givers and peer - Diversional Time Diversional Time: television, games on phone - Assessment Assessment/Plan: Pt is engaged in independent leisure tasks throughout her stay on unit. Pt receives daily room visits for social support and encouragement to participate in sessions; however, pt expresses that she is content. Pt would benefit from participating in recreation therapy sessions for diversion from pain and anxiety. Will encourage pt to participate in sessions throughout stay on unit. Problems Currently Limiting Participation: pain, decrease arousal level, decrease activity tolerance level, decrease leisure awareness level Goals and Time Frame: Pt will be encouraged to participate in 1:1 and group recreation therapy sessions to improve on leisure awareness level, arousal level, activity tolerance level, and overall mood state. - Provider Therapist: Judith Daley Nutrition - Current Diet Current Diet/Supplement/Feedings: Regular diet - Appetite Percent Meal Consumed: 75-100% - Assessment/Goals/Time Frame Assessments/Goals/Time Frame: Pt at moderate nutritional risk. goal: 1. Pt to consume 75-100% of meals. Follow-up due on 11/03/2018 - Provider Provider: Courtney Palacios Case Management - Psychosocial Assessment Support Systems: Zion Funez Jr. (son)- [phone] Psychological Interventions/Needs: CM met with patient and rehab team. Discharge Concerns: Patient has three steps to enter the home and another two inside. Patient requesting outpatient therapy that can provide transportation. Patient/Family Meeting: CM met with patient and rehab team. Intervention/Goal/Outcome: 1. Goal: Mod I. 2. Plan: home with outpatient services? 3. DME needs 4. schedule f/u appts. 4. continued emotional support 5. continued stay auth with d/c 11/05 - Discharge Plan Discharge Plan: Home with significant other/family - Provider Provider: Milagros Houser License Number: [id number] Rehabilitation Plan - Treatment Plan Treatment Plan: Physical Therapy, Occupational Therapy, Wound Care, Patient/Family Education - Recommendation Recommendation: Physical Therapy, Occupational Therapy, Dietary, Patient/Family Education - Discharge Plan Discharge to: Home (27)
--- NOTE | 2018-11-01 13:57 | CP.PCM.PN ---
Subjective - Date & Time of Evaluation Date of Evaluation: 11/01/18 Time of Evaluation: 11:00 - Subjective Subjective: patient with mild leg discomfort no calf pain Objective - Vital Signs/Intake and Output Vital Signs (last 24 hours): Temp Pulse Resp BP Pulse Ox 98.1 F 85 21 108/61 96 11/01/18 08:06 11/01/18 08:06 11/01/18 08:06 11/01/18 08:06 11/01/18 08:06 - Medications Medications: Current Medications Acetaminophen (Tylenol 325mg Tab) 650 mg PO Q4 PRN PRN Reason: Pain, Mild (1-3) Acetaminophen (Tylenol 325mg Tab) 650 mg PO Q4 PRN PRN Reason: Fever >100.4 F Al Hydrox/Mg Hydrox/Simethicone (Maalox Plus 30 Ml) 30 ml PO Q4 PRN PRN Reason: Heartburn Bisacodyl (Dulcolax) 10 mg RC DAILY PRN PRN Reason: Constipation Celecoxib (Celebrex) 200 mg PO 1000,2200 [facility] Last Admin: 11/01/18 09:13 Dose: 200 mg Docusate Sodium (Colace) 100 mg PO TID [facility] Last Admin: 11/01/18 12:21 Dose: 100 mg Enoxaparin Sodium (Lovenox) 40 mg SC DAILY [facility]; Protocol Last Admin: 11/01/18 08:24 Dose: 40 mg Home Med (Olmesartan/Hydrochlorothiazide [Benicar Hct 20-12.5 Mg Tablet]) 20 mg PO DAILY [facility] Last Admin: 11/01/18 08:25 Dose: 20 mg Home Med (Solifenacin Succinate [Vesicare]) 1 tab PO DAILY [facility] Last Admin: 11/01/18 08:28 Dose: 1 tab Magnesium Hydroxide (Milk Of Magnesia) 30 ml PO HS PRN PRN Reason: Constipation Multivitamins/Minerals (Therapeutic-M Tab) 1 tab PO DAILY [facility] Last Admin: 11/01/18 08:28 Dose: 1 tab Ondansetron HCl (Zofran Inj) 4 mg IVP Q6H PRN PRN Reason: Nausea/Vomiting Oxycodone HCl (Oxycodone Immediate Release Tab) 5 mg PO Q4 PRN PRN Reason: Pain, moderate (4-7) Oxycodone HCl (Oxycodone Immediate Release Tab) 10 mg PO Q4 PRN PRN Reason: Pain, severe (8-10) Last Admin: 11/01/18 13:42 Dose: 10 mg Oxycodone HCl (Oxycontin Extended Release Tab) 10 mg PO Q12 [facility] Stop: 11/02/18 21:01 Last Admin: 11/01/18 08:27 Dose: 10 mg Pantoprazole Sodium (Protonix Ec Tab) 40 mg PO DAILY [facility] Last Admin: 11/01/18 08:28 Dose: 40 mg Pregabalin (Lyrica) 50 mg PO 1000,2200 [facility] Last Admin: 11/01/18 09:15 Dose: 50 mg Sennosides (Senokot Tab) 17.2 mg PO HS [facility] Last Admin: 10/31/18 21:17 Dose: 17.2 mg Zolpidem Tartrate (Ambien) 2.5 mg PO HS PRN PRN Reason: Insomnia - Labs Labs: 10/30/18 05:25 10/30/18 05:25 - Constitutional Appears: Well - Head Exam Head Exam: ATRAUMATIC, NORMAL INSPECTION, NORMOCEPHALIC - Eye Exam Eye Exam: EOMI, Normal appearance, PERRL Pupil Exam: NORMAL ACCOMODATION - ENT Exam ENT Exam: Mucous Membranes Moist, Normal Exam - Neck Exam Neck Exam: Full ROM, Normal Inspection - Respiratory Exam Respiratory Exam: NORMAL BREATHING PATTERN - Cardiovascular Exam Cardiovascular Exam: REGULAR RHYTHM - GI/Abdominal Exam GI & Abdominal Exam: Soft, Normal Bowel Sounds - Rectal Exam Rectal Exam: NORMAL INSPECTION - Exam External exam: NORMAL EXTERNAL EXAM - Extremities Exam Extremities Exam: Full ROM, Normal Capillary Refill, Normal Inspection - Back Exam Back Exam: NORMAL INSPECTION - Neurological Exam Neurological Exam: Alert Neuro motor strength exam: Left Lower Extremity: 3, Right Lower Extremity: 3 - Psychiatric Exam Psychiatric exam: Normal Affect, Normal Mood - Skin Skin Exam: Dry, Intact Assessment and Plan (1) Status post bilateral knee replacements Assessment & Plan: plan for Dc on the , DC home with outpatient Physical, therapy at [facility] . Follow up with or on the Status: Acute
--- NOTE | 2018-11-01 17:45 | CP.PCM.PN ---
Subjective - Date & Time of Evaluation Date of Evaluation: 11/01/18 Time of Evaluation: 11:50 - Subjective Subjective: Patient seen and examined. Pain more bearable and admitted feeling better Objective - Vital Signs/Intake and Output Vital Signs (last 24 hours): Temp Pulse Resp BP Pulse Ox 98.1 F 88 21 108/61 98 11/01/18 08:06 11/01/18 09:05 11/01/18 08:06 11/01/18 08:06 11/01/18 09:05 - Medications Medications: Current Medications Acetaminophen (Tylenol 325mg Tab) 650 mg PO Q4 PRN PRN Reason: Pain, Mild (1-3) Acetaminophen (Tylenol 325mg Tab) 650 mg PO Q4 PRN PRN Reason: Fever >100.4 F Al Hydrox/Mg Hydrox/Simethicone (Maalox Plus 30 Ml) 30 ml PO Q4 PRN PRN Reason: Heartburn Bisacodyl (Dulcolax) 10 mg RC DAILY PRN PRN Reason: Constipation Celecoxib (Celebrex) 200 mg PO 1000,2200 [facility] Last Admin: 11/01/18 09:13 Dose: 200 mg Docusate Sodium (Colace) 100 mg PO TID [facility] Last Admin: 11/01/18 16:20 Dose: 100 mg Home Med (Olmesartan/Hydrochlorothiazide [Benicar Hct 20-12.5 Mg Tablet]) 20 mg PO DAILY [facility] Last Admin: 11/01/18 08:25 Dose: 20 mg Home Med (Solifenacin Succinate [Vesicare]) 1 tab PO DAILY [facility] Last Admin: 11/01/18 08:28 Dose: 1 tab Magnesium Hydroxide (Milk Of Magnesia) 30 ml PO HS PRN PRN Reason: Constipation Multivitamins/Minerals (Therapeutic-M Tab) 1 tab PO DAILY [facility] Last Admin: 11/01/18 08:28 Dose: 1 tab Ondansetron HCl (Zofran Inj) 4 mg IVP Q6H PRN PRN Reason: Nausea/Vomiting Oxycodone HCl (Oxycodone Immediate Release Tab) 5 mg PO Q4 PRN PRN Reason: Pain, moderate (4-7) Oxycodone HCl (Oxycodone Immediate Release Tab) 10 mg PO Q4 PRN PRN Reason: Pain, severe (8-10) Last Admin: 11/01/18 13:42 Dose: 10 mg Oxycodone HCl (Oxycontin Extended Release Tab) 10 mg PO Q12 [facility] Stop: 11/02/18 21:01 Last Admin: 11/01/18 08:27 Dose: 10 mg Pantoprazole Sodium (Protonix Ec Tab) 40 mg PO DAILY [facility] Last Admin: 11/01/18 08:28 Dose: 40 mg Pregabalin (Lyrica) 50 mg PO 1000,2200 [facility] Last Admin: 11/01/18 09:15 Dose: 50 mg Sennosides (Senokot Tab) 17.2 mg PO HS [facility] Last Admin: 10/31/18 21:17 Dose: 17.2 mg Zolpidem Tartrate (Ambien) 2.5 mg PO HS PRN PRN Reason: Insomnia - Labs Labs: 10/30/18 05:25 10/30/18 05:25 - Constitutional Appears: No Acute Distress - Head Exam Head Exam: ATRAUMATIC - Eye Exam Eye Exam: absent: Scleral icterus - ENT Exam ENT Exam: Mucous Membranes Moist - Neck Exam Neck Exam: absent: Meningismus - Respiratory Exam Respiratory Exam: absent: Rales, Rhonchi, Wheezes, Respiratory Distress - Cardiovascular Exam Cardiovascular Exam: REGULAR RHYTHM, +S1, +S2 - GI/Abdominal Exam GI & Abdominal Exam: Soft. absent: Tenderness - Rectal Exam Rectal Exam: Deferred - Extremities Exam Extremities Exam: Normal Inspection - Neurological Exam Neurological Exam: Alert, Oriented x3 - Psychiatric Exam Psychiatric exam: Normal Affect - Skin Skin Exam: Dry, Intact Assessment and Plan - Assessment and Plan (Free Text) Assessment: 58 yo female with history of HTN, Asthma, Obesity and Osteoarthritis transferred and admitted to Acute Rehab for PT/OT after bilateral TKR at [facility] on 10/23/2018. 1. Post Bilateral TKR physiatry consult with Dr Davies pain more bearable tolerating PT/OT 2. HTN BP on the low side probably secondary to narcotics Benicar put on hold cardiology consult with Dr Byers 3. Asthma asymptomatic Albuterol inhaler 1 puff q 4hrs prn 4. DVT prophylaxis Lovenox 40mg SC daily
[2018-11-02] MEDS: oxyCODONE 5 mg Immediate Release Tab PO PRN ×5 (00:22→23:20)
[2018-11-02 07:13] LABS: HEMOGLOBIN 10.2 g/dL (12.0-16.0); MEAN CELL VOLUME 98.3 fl (81.0-99.0); MEAN CORPUSCULAR HEMOGLOBIN 32.5 pg (27.0-31.0); RBC 3.15 Mil/uL (3.80-5.20); RED CELL DISTRIBUTION WIDTH 13.4 % (11.5-14.5); WHITE BLOOD COUNT 11.2 K/uL (4.8-10.8)
[2018-11-02 07:31] LABS: BLOOD UREA NITROGEN 15 mg/dl (7-17); CALCIUM 9.3 mg/dL (8.4-10.2); GFR NON-AFRICAN AMERICAN > 60
[2018-11-02] MEDS: OLMESARTAN PO SCH (08:26)
[2018-11-02] MEDS: HYDROCHLOROTHIAZIDE PO SCH (08:26)
[2018-11-02] MEDS: [UNRECOGNIZED DRUG - OTHER] PO SCH (08:26)
[2018-11-02] MEDS: oxyCODONE 10 mg ER Tab (oxyCONTIN) PO SCH ×2 (08:26→22:08)
[2018-11-02] MEDS: Pantoprazole 40 mg EC Tab PO SCH (08:26)
[2018-11-02] MEDS: Multivitamin With Minerals Tab PO SCH (08:26)
[2018-11-02] MEDS: SOLIFENACIN SUCCINATE PO SCH (08:27)
[2018-11-02] MEDS: Enoxaparin 40 mg Syringe SC SCH (12:56)
[2018-11-03] MEDS: oxyCODONE 5 mg Immediate Release Tab PO PRN ×5 (03:41→21:20)
[2018-11-03] MEDS: oxyCODONE 10 mg ER Tab (oxyCONTIN) PO SCH (08:38)
[2018-11-03] MEDS: OLMESARTAN PO SCH (08:39)
[2018-11-03] MEDS: HYDROCHLOROTHIAZIDE PO SCH (08:39)
[2018-11-03] MEDS: SOLIFENACIN SUCCINATE PO SCH (08:39)
[2018-11-03] MEDS: [UNRECOGNIZED DRUG - OTHER] PO SCH (08:39)
[2018-11-03] MEDS: Enoxaparin 40 mg Syringe SC SCH (08:40)
[2018-11-03] MEDS: Pantoprazole 40 mg EC Tab PO SCH (08:40)
[2018-11-03] MEDS: Multivitamin With Minerals Tab PO SCH (08:41)
--- NOTE | 2018-11-03 09:14 | CP.PCM.PN ---
<Sharon Bustamante - Last Filed: 11/03/18 16:42> Subjective - Date & Time of Evaluation Date of Evaluation: 11/03/18 Time of Evaluation: 12:38 - Subjective Subjective: 58 y/o female with history of HTN, Asthma, Obesity and Osteoarthritis transferred and admitted to Acute Rehab for PT/OT after bilateral TKR at [facility] on 10/23/2018. Patient was seen resting comfortably in bed, working with physical therapy and aware of discharge on 11/05/18. Patient still complains of pain bilaterally, and states last bm was few days ago, but denies chest pain, shortness of breath, nausea, vomiting or urinary symptoms Objective - Vital Signs/Intake and Output Vital Signs (last 24 hours): Temp Pulse Resp BP Pulse Ox 98.1 F 88 20 141/65 96 11/03/18 07:37 11/03/18 07:37 11/03/18 07:37 11/03/18 07:37 11/03/18 07:37 - Medications Medications: Current Medications Acetaminophen (Tylenol 325mg Tab) 650 mg PO Q4 PRN PRN Reason: Pain, Mild (1-3) Acetaminophen (Tylenol 325mg Tab) 650 mg PO Q4 PRN PRN Reason: Fever >100.4 F Al Hydrox/Mg Hydrox/Simethicone (Maalox Plus 30 Ml) 30 ml PO Q4 PRN PRN Reason: Heartburn Bisacodyl (Dulcolax) 10 mg RC DAILY PRN PRN Reason: Constipation Celecoxib (Celebrex) 200 mg PO 1000,2200 [facility] Last Admin: 11/02/18 22:10 Dose: 200 mg Docusate Sodium (Colace) 100 mg PO TID [facility] Last Admin: 11/03/18 08:40 Dose: 100 mg Enoxaparin Sodium (Lovenox) 40 mg SC DAILY [facility]; Protocol Last Admin: 11/03/18 08:40 Dose: 40 mg Home Med (Olmesartan/Hydrochlorothiazide [Benicar Hct 20-12.5 Mg Tablet]) 20 mg PO DAILY [facility] Last Admin: 11/03/18 08:39 Dose: 20 mg Home Med (Solifenacin Succinate [Vesicare]) 1 tab PO DAILY [facility] Last Admin: 11/03/18 08:39 Dose: 1 tab Magnesium Hydroxide (Milk Of Magnesia) 30 ml PO HS PRN PRN Reason: Constipation Multivitamins/Minerals (Therapeutic-M Tab) 1 tab PO DAILY [facility] Last Admin: 11/03/18 08:41 Dose: 1 tab Ondansetron HCl (Zofran Inj) 4 mg IVP Q6H PRN PRN Reason: Nausea/Vomiting Oxycodone HCl (Oxycodone Immediate Release Tab) 5 mg PO Q4 PRN PRN Reason: Pain, moderate (4-7) Last Admin: 11/02/18 09:32 Dose: 5 mg Oxycodone HCl (Oxycodone Immediate Release Tab) 10 mg PO Q4 PRN PRN Reason: Pain, severe (8-10) Last Admin: 11/03/18 07:43 Dose: 10 mg Oxycodone HCl (Oxycontin Extended Release Tab) 10 mg PO Q12 [facility] Stop: 11/05/18 21:01 Last Admin: 11/03/18 08:38 Dose: 10 mg Pantoprazole Sodium (Protonix Ec Tab) 40 mg PO DAILY [facility] Last Admin: 11/03/18 08:40 Dose: 40 mg Pregabalin (Lyrica) 50 mg PO 1000,2200 [facility] Last Admin: 11/02/18 22:09 Dose: 50 mg Sennosides (Senokot Tab) 17.2 mg PO HS [facility] Last Admin: 11/02/18 22:10 Dose: 17.2 mg Zolpidem Tartrate (Ambien) 2.5 mg PO HS PRN PRN Reason: Insomnia - Labs Labs: 11/02/18 06:51 11/02/18 06:51 - Constitutional Appears: Well, Non-toxic, No Acute Distress - Head Exam Head Exam: ATRAUMATIC, NORMOCEPHALIC - Eye Exam Eye Exam: Normal appearance, PERRL - ENT Exam ENT Exam: Mucous Membranes Moist - Neck Exam Neck Exam: Full ROM. absent: Lymphadenopathy - Respiratory Exam Respiratory Exam: Clear to Ausculation Bilateral, NORMAL BREATHING PATTERN. absent: Rales, Rhonchi, Wheezes - Cardiovascular Exam Cardiovascular Exam: REGULAR RHYTHM, +S1, +S2 - GI/Abdominal Exam GI & Abdominal Exam: Soft, Normal Bowel Sounds. absent: Firm, Guarding, Rigid - Rectal Exam Rectal Exam: Deferred - Extremities Exam Extremities Exam: Normal Capillary Refill, Normal Inspection, Tenderness - Neurological Exam Neurological Exam: Alert, Awake, Oriented x3 - Psychiatric Exam Psychiatric exam: Normal Affect, Normal Mood - Skin Skin Exam: Normal Color Assessment and Plan - Assessment and Plan (Free Text) Assessment: 58 yo female with history of HTN, Asthma, Obesity and Osteoarthritis transferred and admitted to Acute Rehab for PT/OT after bilateral TKR at [facility] on 10/23/2018. Plan: 1. Post Bilateral TKR physiatry consult with Dr Davies pain more bearable tolerating PT/OT 2. HTN BP on the low side probably secondary to narcotics Benicar put on hold cardiology consult with Dr Praveen Connor- recommendations appreciated 3. Asthma asymptomatic Albuterol inhaler 1 puff q 4hrs prn 4. Constipation - MiraLax PRN 5. DVT prophylaxis Lovenox 40 mg SC daily- 10 day course <Jae Luna - Last Filed: 11/03/18 18:07> Objective - Vital Signs/Intake and Output Vital Signs (last 24 hours): Temp Pulse Resp BP Pulse Ox 98.1 F 88 20 141/65 96 11/03/18 07:37 11/03/18 07:37 11/03/18 07:37 11/03/18 07:37 11/03/18 07:37 - Medications Medications: Current Medications Acetaminophen (Tylenol 325mg Tab) 650 mg PO Q4 PRN PRN Reason: Fever >100.4 F Acetaminophen (Tylenol 325mg Tab) 650 mg PO Q4 PRN PRN Reason: Pain scale 1-7 Al Hydrox/Mg Hydrox/Simethicone (Maalox Plus 30 Ml) 30 ml PO Q4 PRN PRN Reason: Heartburn Bisacodyl (Dulcolax) 10 mg RC DAILY PRN PRN Reason: Constipation Celecoxib (Celebrex) 200 mg PO 1000,2200 [facility] Last Admin: 11/03/18 09:48 Dose: 200 mg Docusate Sodium (Colace) 100 mg PO TID [facility] Last Admin: 11/03/18 16:45 Dose: 100 mg Enoxaparin Sodium (Lovenox) 40 mg SC DAILY [facility]; Protocol Last Admin: 11/03/18 08:40 Dose: 40 mg Home Med (Olmesartan/Hydrochlorothiazide [Benicar Hct 20-12.5 Mg Tablet]) 20 mg PO DAILY [facility] Last Admin: 11/03/18 08:39 Dose: 20 mg Home Med (Solifenacin Succinate [Vesicare]) 1 tab PO DAILY [facility] Last Admin: 11/03/18 08:39 Dose: 1 tab Magnesium Hydroxide (Milk Of Magnesia) 30 ml PO HS PRN PRN Reason: Constipation Multivitamins/Minerals (Therapeutic-M Tab) 1 tab PO DAILY [facility] Last Admin: 11/03/18 08:41 Dose: 1 tab Ondansetron HCl (Zofran Inj) 4 mg IVP Q6H PRN PRN Reason: Nausea/Vomiting Oxycodone HCl (Oxycodone Immediate Release Tab) 5 mg PO Q4 PRN PRN Reason: Pain, severe (8-10) Last Admin: 11/03/18 16:50 Dose: 5 mg Pantoprazole Sodium (Protonix Ec Tab) 40 mg PO DAILY [facility] Last Admin: 11/03/18 08:40 Dose: 40 mg Pregabalin (Lyrica) 50 mg PO 1000,2200 [facility] Last Admin: 11/03/18 09:48 Dose: 50 mg Sennosides (Senokot Tab) 17.2 mg PO HS [facility] Last Admin: 11/02/18 22:10 Dose: 17.2 mg Zolpidem Tartrate (Ambien) 2.5 mg PO HS PRN PRN Reason: Insomnia - Labs Labs: 11/02/18 06:51 11/02/18 06:51 Attending/Attestation - Attestation I have personally seen and examined this patient.: Yes I have fully participated in the care of the patient.: Yes I have reviewed all pertinent clinical information, including history, physical exam and plan: Yes Notes (Text): 11/03/18 18:07 Patient seen and examined with resident. Case discussed and agreed with a ssessment.
--- NOTE | 2018-11-03 10:05 | CP.PCM.PN ---
Subjective - Date & Time of Evaluation Date of Evaluation: 11/03/18 Time of Evaluation: 10:00 - Subjective Subjective: Still has a fair amount of surgical pain, which does respond to analgesics Vital signs stable Surgical wounds healing well Tentative D/C scheduled for Objective - Vital Signs/Intake and Output Vital Signs (last 24 hours): Temp Pulse Resp BP Pulse Ox 98.1 F 88 20 141/65 96 11/03/18 07:37 11/03/18 07:37 11/03/18 07:37 11/03/18 07:37 11/03/18 07:37 - Medications Medications: Current Medications Acetaminophen (Tylenol 325mg Tab) 650 mg PO Q4 PRN PRN Reason: Pain, Mild (1-3) Acetaminophen (Tylenol 325mg Tab) 650 mg PO Q4 PRN PRN Reason: Fever >100.4 F Al Hydrox/Mg Hydrox/Simethicone (Maalox Plus 30 Ml) 30 ml PO Q4 PRN PRN Reason: Heartburn Bisacodyl (Dulcolax) 10 mg RC DAILY PRN PRN Reason: Constipation Celecoxib (Celebrex) 200 mg PO 1000,2200 [facility] Last Admin: 11/03/18 09:48 Dose: 200 mg Docusate Sodium (Colace) 100 mg PO TID [facility] Last Admin: 11/03/18 08:40 Dose: 100 mg Enoxaparin Sodium (Lovenox) 40 mg SC DAILY [facility]; Protocol Last Admin: 11/03/18 08:40 Dose: 40 mg Home Med (Olmesartan/Hydrochlorothiazide [Benicar Hct 20-12.5 Mg Tablet]) 20 mg PO DAILY [facility] Last Admin: 11/03/18 08:39 Dose: 20 mg Home Med (Solifenacin Succinate [Vesicare]) 1 tab PO DAILY [facility] Last Admin: 11/03/18 08:39 Dose: 1 tab Magnesium Hydroxide (Milk Of Magnesia) 30 ml PO HS PRN PRN Reason: Constipation Multivitamins/Minerals (Therapeutic-M Tab) 1 tab PO DAILY [facility] Last Admin: 11/03/18 08:41 Dose: 1 tab Ondansetron HCl (Zofran Inj) 4 mg IVP Q6H PRN PRN Reason: Nausea/Vomiting Oxycodone HCl (Oxycodone Immediate Release Tab) 5 mg PO Q4 PRN PRN Reason: Pain, moderate (4-7) Last Admin: 11/02/18 09:32 Dose: 5 mg Oxycodone HCl (Oxycodone Immediate Release Tab) 10 mg PO Q4 PRN PRN Reason: Pain, severe (8-10) Last Admin: 11/03/18 07:43 Dose: 10 mg Oxycodone HCl (Oxycontin Extended Release Tab) 10 mg PO Q12 [facility] Stop: 11/05/18 21:01 Last Admin: 11/03/18 08:38 Dose: 10 mg Pantoprazole Sodium (Protonix Ec Tab) 40 mg PO DAILY [facility] Last Admin: 11/03/18 08:40 Dose: 40 mg Pregabalin (Lyrica) 50 mg PO 1000,2200 [facility] Last Admin: 11/03/18 09:48 Dose: 50 mg Sennosides (Senokot Tab) 17.2 mg PO HS [facility] Last Admin: 11/02/18 22:10 Dose: 17.2 mg Zolpidem Tartrate (Ambien) 2.5 mg PO HS PRN PRN Reason: Insomnia - Labs Labs: 11/02/18 06:51 11/02/18 06:51
--- NOTE | 2018-11-03 15:30 | CP.PCM.PN ---
Subjective - Date & Time of Evaluation Date of Evaluation: 11/03/18 Time of Evaluation: 11:00 - Subjective Subjective: patient with less complaints of pain, ? real VS some anxiety Objective - Vital Signs/Intake and Output Vital Signs (last 24 hours): Temp Pulse Resp BP Pulse Ox 98.1 F 88 20 141/65 96 11/03/18 07:37 11/03/18 07:37 11/03/18 07:37 11/03/18 07:37 11/03/18 07:37 - Medications Medications: Current Medications Acetaminophen (Tylenol 325mg Tab) 650 mg PO Q4 PRN PRN Reason: Fever >100.4 F Acetaminophen (Tylenol 325mg Tab) 650 mg PO Q4 PRN PRN Reason: Pain scale 1-7 Al Hydrox/Mg Hydrox/Simethicone (Maalox Plus 30 Ml) 30 ml PO Q4 PRN PRN Reason: Heartburn Bisacodyl (Dulcolax) 10 mg RC DAILY PRN PRN Reason: Constipation Celecoxib (Celebrex) 200 mg PO 1000,2200 [facility] Last Admin: 11/03/18 09:48 Dose: 200 mg Docusate Sodium (Colace) 100 mg PO TID [facility] Last Admin: 11/03/18 12:07 Dose: 100 mg Enoxaparin Sodium (Lovenox) 40 mg SC DAILY [facility]; Protocol Last Admin: 11/03/18 08:40 Dose: 40 mg Home Med (Olmesartan/Hydrochlorothiazide [Benicar Hct 20-12.5 Mg Tablet]) 20 mg PO DAILY [facility] Last Admin: 11/03/18 08:39 Dose: 20 mg Home Med (Solifenacin Succinate [Vesicare]) 1 tab PO DAILY [facility] Last Admin: 11/03/18 08:39 Dose: 1 tab Magnesium Hydroxide (Milk Of Magnesia) 30 ml PO HS PRN PRN Reason: Constipation Multivitamins/Minerals (Therapeutic-M Tab) 1 tab PO DAILY [facility] Last Admin: 11/03/18 08:41 Dose: 1 tab Ondansetron HCl (Zofran Inj) 4 mg IVP Q6H PRN PRN Reason: Nausea/Vomiting Oxycodone HCl (Oxycodone Immediate Release Tab) 5 mg PO Q4 PRN PRN Reason: Pain, severe (8-10) Pantoprazole Sodium (Protonix Ec Tab) 40 mg PO DAILY [facility] Last Admin: 11/03/18 08:40 Dose: 40 mg Pregabalin (Lyrica) 50 mg PO 1000,2200 [facility] Last Admin: 11/03/18 09:48 Dose: 50 mg Sennosides (Senokot Tab) 17.2 mg PO HS [facility] Last Admin: 11/02/18 22:10 Dose: 17.2 mg Zolpidem Tartrate (Ambien) 2.5 mg PO HS PRN PRN Reason: Insomnia - Labs Labs: 11/02/18 06:51 11/02/18 06:51 - Constitutional Appears: Well - Head Exam Head Exam: ATRAUMATIC, NORMAL INSPECTION, NORMOCEPHALIC - Eye Exam Eye Exam: EOMI, Normal appearance, PERRL Pupil Exam: NORMAL ACCOMODATION - ENT Exam ENT Exam: Mucous Membranes Moist, Normal Exam - Neck Exam Neck Exam: Full ROM, Normal Inspection - Respiratory Exam Respiratory Exam: Clear to Ausculation Bilateral, NORMAL BREATHING PATTERN - Cardiovascular Exam Cardiovascular Exam: REGULAR RHYTHM - GI/Abdominal Exam GI & Abdominal Exam: Soft, Normal Bowel Sounds - Rectal Exam Rectal Exam: NORMAL INSPECTION - Exam External exam: NORMAL EXTERNAL EXAM - Extremities Exam Extremities Exam: Full ROM, Normal Capillary Refill, Normal Inspection - Back Exam Back Exam: NORMAL INSPECTION - Neurological Exam Neurological Exam: Alert, Awake Neuro motor strength exam: Left Lower Extremity: 3, Right Lower Extremity: 3 - Psychiatric Exam Psychiatric exam: Normal Affect, Normal Mood - Skin Skin Exam: Dry, Intact Assessment and Plan (1) Status post bilateral knee replacements Assessment & Plan: discussed with patinet need to wean off the pain meds. Dc the long acting and decrease the PRN. Liver functions slightly elevated,to decrease the pain meds, taper meds Status: Acute
[2018-11-03] MEDS ORDERED: oxyCODONE 10 mg ER Tab (oxyCONTIN) PO SCH (21:00)
[2018-11-04] MEDS: oxyCODONE 5 mg Immediate Release Tab PO PRN ×6 (01:13→22:19)
[2018-11-04] MEDS: HYDROCHLOROTHIAZIDE PO SCH (09:19)
[2018-11-04] MEDS: Enoxaparin 40 mg Syringe SC SCH (09:19)
[2018-11-04] MEDS: [UNRECOGNIZED DRUG - OTHER] PO SCH (09:19)
[2018-11-04] MEDS: OLMESARTAN PO SCH (09:19)
[2018-11-04] MEDS: Multivitamin With Minerals Tab PO SCH (09:20)
[2018-11-04] MEDS: Pantoprazole 40 mg EC Tab PO SCH (09:20)
[2018-11-04] MEDS: SOLIFENACIN SUCCINATE PO SCH (09:20)
--- NOTE | 2018-11-04 10:55 | CP.PCM.PN ---
Subjective - Date & Time of Evaluation Date of Evaluation: 11/04/18 Time of Evaluation: 10:00 - Subjective Subjective: extremely anxious about impending discharge tomorrow. The patient was able to independently get out of bed and walked to the bathroom and back. She was found sitting in the chair having visited the bathroom recently. Her vital signs were stable. Mild pitting edema over both lower extremities. Surgical wounds were cleaned with no induration or discharge. The patient was reassured regarding her post discharge recovery. Objective - Vital Signs/Intake and Output Vital Signs (last 24 hours): Temp Pulse Resp BP Pulse Ox 98.1 F 81 22 154/75 H 97 11/04/18 08:19 11/04/18 08:19 11/04/18 08:19 11/04/18 08:19 11/04/18 08:19 - Medications Medications: Current Medications Acetaminophen (Tylenol 325mg Tab) 650 mg PO Q4 PRN PRN Reason: Fever >100.4 F Acetaminophen (Tylenol 325mg Tab) 650 mg PO Q4 PRN PRN Reason: Pain scale 1-7 Last Admin: 11/04/18 07:04 Dose: 650 mg Al Hydrox/Mg Hydrox/Simethicone (Maalox Plus 30 Ml) 30 ml PO Q4 PRN PRN Reason: Heartburn Bisacodyl (Dulcolax) 10 mg RC DAILY PRN PRN Reason: Constipation Celecoxib (Celebrex) 200 mg PO 1000,2200 [facility] Last Admin: 11/04/18 09:20 Dose: 200 mg Docusate Sodium (Colace) 100 mg PO TID [facility] Last Admin: 11/04/18 09:19 Dose: 100 mg Enoxaparin Sodium (Lovenox) 40 mg SC DAILY [facility]; Protocol Last Admin: 11/04/18 09:19 Dose: 40 mg Home Med (Olmesartan/Hydrochlorothiazide [Benicar Hct 20-12.5 Mg Tablet]) 20 mg PO DAILY [facility] Last Admin: 11/04/18 09:19 Dose: 20 mg Home Med (Solifenacin Succinate [Vesicare]) 1 tab PO DAILY [facility] Last Admin: 11/04/18 09:20 Dose: 1 tab Magnesium Hydroxide (Milk Of Magnesia) 30 ml PO HS PRN PRN Reason: Constipation Multivitamins/Minerals (Therapeutic-M Tab) 1 tab PO DAILY [facility] Last Admin: 11/04/18 09:20 Dose: 1 tab Ondansetron HCl (Zofran Inj) 4 mg IVP Q6H PRN PRN Reason: Nausea/Vomiting Oxycodone HCl (Oxycodone Immediate Release Tab) 5 mg PO Q4 PRN PRN Reason: Pain, severe (8-10) Last Admin: 11/04/18 09:24 Dose: 5 mg Pantoprazole Sodium (Protonix Ec Tab) 40 mg PO DAILY [facility] Last Admin: 11/04/18 09:20 Dose: 40 mg Pregabalin (Lyrica) 50 mg PO 1000,2200 [facility] Last Admin: 11/04/18 09:24 Dose: 50 mg Sennosides (Senokot Tab) 17.2 mg PO HS [facility] Last Admin: 11/03/18 21:19 Dose: 17.2 mg Zolpidem Tartrate (Ambien) 2.5 mg PO HS PRN PRN Reason: Insomnia - Labs Labs: 11/02/18 06:51 11/02/18 06:51
[2018-11-04 20:30] VITALS: TEMP 97.9
[2018-11-05] MEDS: oxyCODONE 5 mg Immediate Release Tab PO PRN ×2 (02:27→08:07)
[2018-11-05] MEDS ORDERED: oxyCODONE 5 mg Immediate Release Tab PO STA (03:55)
[2018-11-05 07:57] LABS: HEMOGLOBIN 10.5 g/dL (12.0-16.0); MEAN CELL VOLUME 96.1 fl (81.0-99.0); MEAN CORPUSCULAR HEMOGLOBIN 32.6 pg (27.0-31.0); RBC 3.2 Mil/uL (3.80-5.20); RED CELL DISTRIBUTION WIDTH 13.4 % (11.5-14.5); WHITE BLOOD COUNT 9.9 K/uL (4.8-10.8)
[2018-11-05] MEDS: Multivitamin With Minerals Tab PO SCH (08:08)
[2018-11-05] MEDS: [UNRECOGNIZED DRUG - OTHER] PO SCH (08:09)
[2018-11-05] MEDS: Pantoprazole 40 mg EC Tab PO SCH (08:09)
[2018-11-05] MEDS: OLMESARTAN PO SCH (08:09)
[2018-11-05] MEDS: SOLIFENACIN SUCCINATE PO SCH (08:09)
[2018-11-05] MEDS: HYDROCHLOROTHIAZIDE PO SCH (08:09)
[2018-11-05] MEDS: Enoxaparin 40 mg Syringe SC SCH (08:10)
[2018-11-05 08:13] LABS: BLOOD UREA NITROGEN 14 mg/dl (7-17); CALCIUM 9.8 mg/dL (8.4-10.2); GFR NON-AFRICAN AMERICAN > 60
[2018-11-05 08:30] VITALS: BP 97/48; PULSE 74; RESP 19; O2SAT 96
--- NOTE | 2018-11-05 10:59 | CP.PCM.DIS ---
Provider - Provider Date of Admission: 10/26/18 18:24 Attending physician: Jae Luna MD Primary care physician: Aguilar Connor MD Consults: 10/26/18 18:58 Physiatry Consult Routine Comment: Consulting Provider: Min Cruz Consulting Physician: Min Cruz Reason for Consult: post bilateral TKR 10/27/18 01:12 Pharmacist Consult As Ordered Comment: Physician Instructions: Reason For Exam: on Lovenox 10/27/18 08:30 Case Management Referral Routine Comment: Physician Instructions: Reason For Exam: for discharge planning Reason for Referral: Discharge Planning 10/30/18 13:20 Cardiology Consult Routine Comment: Consulting Provider: Aguilar Connor V Consulting Physician: Augilar Connor V Reason for Consult: hypertension now with relatively low BP Time Spent in preparation of Discharge (in minutes): 35 Diagnosis - Discharge Diagnosis (1) Status post bilateral knee replacements Status: Acute Hospital Course - Lab Results Lab Results: Most Recent Lab Values WBC 9.9 K/uL (4.8-10.8) 11/05/18 07:00 RBC 3.20 Mil/uL (3.80-5.20) L 11/05/18 07:00 Hgb 10.5 g/dL (12.0-16.0) L 11/05/18 07:00 Hct 30.8 % (34.0-47.0) L 11/05/18 07:00 MCV 96.1 fl (81.0-99.0) D 11/05/18 07:00 MCH 32.6 pg (27.0-31.0) H 11/05/18 07:00 MCHC 34.0 g/dL (33.0-37.0) 11/05/18 07:00 RDW 13.4 % (11.5-14.5) 11/05/18 07:00 Plt Count 385 K/uL (130-400) 11/05/18 07:00 MPV 10.1 fl (7.2-11.7) 10/27/18 05:35 Neut % (Auto) 60.8 % (50.0-75.0) 10/27/18 05:35 Lymph % (Auto) 30.7 % (20.0-40.0) 10/27/18 05:35 [place] % (Auto) 7.0 % (0.0-10.0) 10/27/18 05:35 Eos % (Auto) 1.3 % (0.0-4.0) 10/27/18 05:35 Baso % (Auto) 0.2 % (0.0-2.0) 10/27/18 05:35 Neut # (Auto) 6.7 K/uL (1.8-7.0) 10/27/18 05:35 Lymph # (Auto) 3.4 K/uL (1.0-4.3) 10/27/18 05:35 [place] # (Auto) 0.8 K/uL (0.0-0.8) 10/27/18 05:35 Eos # (Auto) 0.1 K/uL (0.0-0.7) 10/27/18 05:35 Baso # (Auto) 0.0 K/uL (0.0-0.2) 10/27/18 05:35 Sodium 136 mmol/l (132-148) 11/05/18 07:00 Potassium 3.6 MMOL/L (3.6-5.0) 11/05/18 07:00 Chloride 97 mmol/L (98-107) L 11/05/18 07:00 Carbon Dioxide 33 mmol/L (22-30) H 11/05/18 07:00 Anion Gap 10 (10-20) 11/05/18 07:00 BUN 14 mg/dl (7-17) 11/05/18 07:00 Creatinine 0.6 mg/dl (0.7-1.2) L 11/05/18 07:00 Est GFR ( Amer) > 60 11/05/18 07:00 Est GFR (Non-Af Amer) > 60 11/05/18 07:00 Random Glucose 105 mg/dL (65-105) 11/05/18 07:00 Calcium 9.8 mg/dL (8.4-10.2) 11/05/18 07:00 Total Bilirubin 0.8 mg/dl (0.2-1.3) 10/27/18 05:35 AST 52 U/L (14-36) H D 10/27/18 05:35 ALT 60 U/L (9-52) H D 10/27/18 05:35 Alkaline Phosphatase 104 U/L (38-126) 10/27/18 05:35 Total Protein 5.7 G/DL (6.3-8.2) L 10/27/18 05:35 Albumin 3.1 g/dL (3.5-5.0) L D 10/27/18 05:35 Globulin 2.6 gm/dL (2.2-3.9) 10/27/18 05:35 Albumin/Globulin Ratio 1.2 (1.0-2.1) 10/27/18 05:35 - Hospital Course Hospital Course: 58 yo female with history of HTN, Asthma, Obesity and Osteoarthritis transferred and admitted to Acute Rehab for PT/OT after bilateral TKR at [facility] on 10/23/2018. Patient did well with PT, stable to be discharged home at this time. 1. Post Bilateral TKR physiatry consult with Dr Davies pain more bearable tolerating PT/OT 2. HTN BP on the low side probably secondary to narcotics Benicar put on hold cardiology consult with Dr Byers 3. Asthma asymptomatic Albuterol inhaler 1 puff q 4hrs prn 4. DVT prophylaxis Lovenox 40mg SC daily Discharge Exam - Head Exam Head Exam: ATRAUMATIC, NORMOCEPHALIC - Eye Exam Eye Exam: EOMI, Normal appearance, PERRL Pupil Exam: NORMAL ACCOMODATION - ENT Exam ENT Exam: Mucous Membranes Moist, Normal Oropharynx - Respiratory Exam Respiratory Exam: Clear to PA & Lateral, NORMAL BREATHING PATTERN - Cardiovascular Exam Cardiovascular Exam: RRR, +S1, +S2 - GI/Abdominal Exam GI & Abdominal Exam: Normal Bowel Sounds, Soft. absent: Mass, Organomegaly, Pulsatile Mass, Tenderness - Extremities Exam Extremities exam: normal capillary refill, pedal pulses present - Back Exam Back exam: absent: CVA tenderness (L), CVA tenderness (R) - Neurological Exam Neurological exam: Alert, Oriented x3 - Psychiatric Exam Psychiatric exam: Normal Affect, Normal Mood - Skin Skin Exam: Dry, Warm Discharge Plan - Discharge Medications Prescriptions: Celecoxib [celeBREX] 200 mg PO BID #60 cap Pregabalin [Lyrica] 50 mg PO BID #60 cap Zolpidem [Ambien] 2.5 mg PO HS PRN #30 tab PRN Reason: Sleep - Follow Up Plan Condition: GOOD Disposition: HOME/ ROUTINE Instructions: Pregabalin, Celecoxib, Docusate, Olmesartan and Hydrochlorothiazide, Oxycodone, Pantoprazole, Senna, Solifenacin, Vitamins (Multiple/Oral), Zolpidem Referrals: Aguilar Connor MD [Primary Care Provider] -
== END 2018-11-05 12:02 | disposition home or self-care (01) | DRG 560 ==
PROC: F07Z9FZ Gait Training/Functional Ambulation Treatment using Assistive, Adaptive, Supportive or Protective Equipment (ICD-10-PCS; principal; 2018-10-26)
PROC: F07M6FZ Therapeutic Exercise Treatment of Musculoskeletal System - Whole Body using Assistive, Adaptive, Supportive or Protective Equipment (ICD-10-PCS; 2018-10-26)
PROC: 3E0F7GC Introduction of Other Therapeutic Substance into Respiratory Tract, Via Natural or Artificial Opening (ICD-10-PCS; 2018-10-26)
DX: Z47.1 Aftercare following joint replacement surgery (principal); Z68.43 Body mass index [BMI] 50.0-59.9, adult; Z96.653 Presence of artificial knee joint, bilateral; E66.9 Obesity, unspecified; E66.09 Other obesity due to excess calories; Z71.3 Dietary counseling and surveillance; I10 Essential (primary) hypertension; J45.909 Unspecified asthma, uncomplicated; K59.03 Drug induced constipation; M17.0 Bilateral primary osteoarthritis of knee; T40.605A Adverse effect of unspecified narcotics, initial encounter; Z85.820 Personal history of malignant melanoma of skin; Z87.891 Personal history of nicotine dependence; Z90.49 Acquired absence of other specified parts of digestive tract